=== PATIENT | male | born 1965 | race African-American/Black ===

== ENCOUNTER 2021-02-16 01:12 | Day surgery (SDC) | payer MEDICARE, SELFPAY ==
[2021-02-02 13:56] VITALS: BMI 27.4
--- NOTE | 2021-02-15 12:00 | P.PNAN_ITS ---
Anes - Initial Pre Proc Eval Procedure: Operation Date: 02/16/21 11:00 Proposed Procedures p Screening Colonoscopy - Rodney Chase MD Date/Time: 02/15/21 12:00 Surgeon: Rodney Chase MD Pre Op Diagnosis: family hx of colon ca Patient Data Age: 55 Gender: M Height: 1.73 m Weight: 81.8 kg Allergies Allergy/AdvReac Type Severity Reaction Status Date / Time No Known Allergies Allergy Verified 02/16/21 09:50 Home Medications Medication Instructions Recorded Confirmed Type No Home Medications 11/11/20 11/11/20 History Patient hx anesthesia problems: none Family hx anesthesia problems: none COUNT INCLUDES THE [facility] Past Medical History Medical History (Updated 02/15/21 @ 12:00 by Scotty Sanchez DO) Encounter for screening colonoscopy Schizophrenia Social History Social History (Updated 11/11/20 @ 09:41 by Danni Alejandro CMA) Smoking status: Former smoker Alcohol intake: current Drinks per week: 3 Substance use: never Substance use type: does not use Living arrangements: with family Gender identity (if verbalized by the patient): Male Anes - Eval Final PreProcedure Day of Procedure 02/15/21 12:00 Patient weight: overweight Heart: regular rate and rhythm Lungs: clear to auscultation and normal air movement Airway: Mallampati scale class II Neurological: alert and oriented Last oral intake: >/= 8 hours ASA classification: II Emergent: no Anesthetic plan: proceed Anesthesia type and monitoring: general GIVS and standard monitoring Informed Consent: The patient's anesthetic plan and its attendant risks and benefits were discussed with the patient/family/POA. Questions were solicited and answers provided to the satisfaction of the patient/family/POA.
[2021-02-16 09:52] VITALS: BP 131/81; PULSE 101; RESP 18; TEMP 36.4; O2SAT 100; BMI 24.3
[2021-02-16] MEDS: LACTATED RINGERS 1,000 ML 150 ML IV CONT (09:59)
--- NOTE | 2021-02-16 10:32 | PM.HPGS ---
History of Present Illness History of Present Illness Consent: Risks, benefits, and alternatives have been discussed and questions answered. Patient agrees to proceed with procedure. Chief complaint: family hx of colon ca Narrative: Verito Dye is a 55 year old male here for first screening colonoscopy, brother had colon cancer. Review of Systems Constitutional: Constitutional: Denies headache(s) and Denies weakness Eyes: Eyes: Denies blurry vision ENT: Reports Normal hearing present, Denies headache(s) and Denies neck pain Cardiovascular: Cardiovascular: Denies chest pain and Denies dyspnea Respiratory: Respiratory: Denies dyspnea Gastrointestinal: Gastrointestinal: Reports no additional gastrointestinal complaints Genitourinary: Genitourinary: Denies dysuria Musculoskeletal: Musculoskeletal: Denies neck pain Integumentary/Breasts: Skin/Breast: Denies dry skin Neurologic: Reports Normal hearing present, Denies headache(s) and Denies weakness Psychiatric: Psychiatric: Denies anxiety Endocrine: Endocrine: Denies change in body appearance Hematologic/Lymphatic: Hematologic/Lymphatic: Denies easy bleeding Allergic/Immunologic: Allergic/Immunologic: Denies urticaria PMFSH Past Medical History Medical History (Updated 02/15/21 @ 12:00 by Scotty Sanchez DO) Encounter for screening colonoscopy Schizophrenia Social History Social History (Updated 11/11/20 @ 09:41 by Danni Alejandro CMA) Smoking status: Former smoker Alcohol intake: current Drinks per week: 3 Substance use: never Substance use type: does not use Living arrangements: with family Gender identity (if verbalized by the patient): Male Meds Home Medications and Allergies Home Medications Medication Instructions Recorded Confirmed Type No Home Medications 11/11/20 11/11/20 History Allergies Allergy/AdvReac Type Severity Reaction Status Date / Time No Known Allergies Allergy Verified 02/16/21 09:50 Vital Signs Vital Signs - 24 hr 02/16/21 09:52 Temperature 97.5 F L Pulse Rate 101 H Respiratory Rate 18 Blood Pressure 131/81 Pulse Oximetry 100 Exam Const: General: comfortable and no acute distress HENMT: General nose exam: Normal nares present Eyes: General: appearance normal, both eyes and all related structures Neck: Neck: no JVD Resp: Auscultation: clear to auscultation bilaterally Cardio: Rate: regular rate Rhythm: regular rhythm GI: Inspection: non-distended GI Palp: Yes Soft to palpation Skin: General skin exam: normal color Neuro: General: gait normal Speech: normal speech Extrem: General: normal to inspection Psych: Mental Status: mental status grossly normal Assessment and Plan Assessment and plan (1) Encounter for screening colonoscopy: Code(s): Z12.11 - Encounter for screening for malignant neoplasm of colon Status: Acute Assessment and Plan: colonoscopy
[2021-02-16 10:53] VITALS: BP 88/57; PULSE 86; RESP 22; O2SAT 100
[2021-02-16 11:03] VITALS: BP 112/68; PULSE 92; RESP 20; O2SAT 100
[2021-02-16 11:13] VITALS: BP 113/72; PULSE 90; RESP 22; O2SAT 97
== END 2021-02-16 11:20 | disposition home or self-care (01) ==
PROVIDERS: PCP Family Medicine; Visit Provider Internal Medicine Gastroenterology
PROC: 0DJD8ZZ Inspection of Lower Intestinal Tract, Via Natural or Artificial Opening Endoscopic (ICD-10-PCS; CPT 45378; principal; 2021-02-16 11:00)
DX: Z12.11 Encounter for screening for malignant neoplasm of colon (principal); K64.8 Other hemorrhoids; Z80.0 Family history of malignant neoplasm of digestive organs; Z87.891 Personal history of nicotine dependence
CPT/HCPCS: G0105; J2704; J7120

== ENCOUNTER 2023-10-27 17:58 | Emergency (ER) | payer MEDICARE, SELFPAY ==
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
[2023-10-27 18:02] VITALS: BP 134/71; PULSE 82; RESP 16; TEMP 36.9; O2SAT 100
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
[2023-10-27] MEDS: TETANUS,DIPHTHERIA,AC PERTUSSIS ADULT (0.5 ML) BOOSTRIX IM (19:06)
[2023-10-27 19:35] LABS: Basophils Absolute Auto 0.1 K/mm3 (0.0-0.1); Basophils Percent Auto 0.5 % (0.2-1.2); Eosinophils Absolute Auto 0.1 K/mm3 (0-0.3); Eosinophils Percent Auto 0.6 % (0-4.4); Hematocrit 42.6 % (42.0-52.0); Hemoglobin 13.7 g/dL (14.0-18.0); Immature Granulocyte Absolute 0.03 K/mm3 (0.00-0.031); Immature Granulocyte Percent A 0.3 % (0-0.5); Lymphocytes Absolute Auto 1.93 K/mm3 (0.9-3.2); Lymphocytes Percent Auto 18.1 % (18.3-44.2); Mean Corpuscular HGB Conc 32.2 g/dl (32-36); Mean Corpuscular Hemoglobin 30.7 pg (26-34); Mean Corpuscular Volume 95.5 fl (80-100); Mean Platelet Volume 10.4 fl (7.4-10.4); Monocytes Absolute Auto 0.5 K/mm3 (0.1-0.6); Monocytes Percent Auto 4.8 % (2.6-8.5); Neutrophils Absolute Auto 8.1 K/mm3 (1.3-6.7); Neutrophils Percent Auto 75.7 % (45.5-73.1); Platelet Count Result 181 k/mm3 (150-375); Red Blood Count 4.46 M/mm3 (4.6-6.20); Red Cell Distribution Width 13.8 % (11.5-14.5); White Blood Count 10.7 K/mm3 (4.5-10.0)
[2023-10-27 19:40] LABS: Anion Gap 6 mmol/L (4-12); Blood Urea Nitrogen 17 mg/dL (9-20); Calcium 9.4 mg/dL (8.4-10.2); Carbon Dioxide 26 mmol/L (22-30); Chloride 108 mmol/L (98-107); Estimated CRCL calculation 64 ml/min; Estimated Glomerular Filt Rate > 60; Glucose 95 mg/dL (65-110); Sodium 140 mmol/L (137-145)
[2023-10-27 20:23] VITALS: PULSE 72; RESP 17; O2SAT 100
[2023-10-27 21:59] VITALS: BP 138/71; PULSE 74; RESP 19; O2SAT 98
== END 2023-10-27 22:00 | disposition home or self-care (01) ==
PROVIDERS: Emergency Provider Student in an Organized Health Care Education/Training Program
DX: S80.212A Abrasion, left knee, initial encounter (principal); V03.90XA Pedestrian on foot injured in collision with car, pick-up truck or van, unspecified whether traffic or nontraffic accident, initial encounter; Z23 Encounter for immunization; Z87.891 Personal history of nicotine dependence; R62.50 Unspecified lack of expected normal physiological development in childhood
CPT/HCPCS: 36415; 70450; 71260; 72125; 72129; 72132; 73552; 73562; 74177; 80048; 85025; 90471; 90715; 99284; Q9967

== ENCOUNTER 2024-05-07 15:41 | Outpatient (CLI) | payer MEDICARE, SELFPAY ==
[2024-05-07 16:13] LABS: Basophils Percent Auto 0.4 % (0.2-1.2); Eosinophils Percent Auto 0.4 % (0-4.4); Hematocrit 42.9 % (42.0-52.0); Hemoglobin 14.2 g/dL (14.0-18.0); Immature Granulocyte Absolute 0.02 K/mm3 (0.00-0.031); Immature Granulocyte Percent A 0.2 % (0-0.5); Lymphocytes Absolute Auto 2.79 K/mm3 (0.9-3.2); Lymphocytes Percent Auto 29.2 % (18.3-44.2); Mean Corpuscular HGB Conc 33.1 g/dl (32-36); Mean Corpuscular Hemoglobin 31.5 pg (26-34); Mean Corpuscular Volume 95.1 fl (80-100); Monocytes Absolute Auto 0.5 K/mm3 (0.1-0.6); Monocytes Percent Auto 5.1 % (2.6-8.5); Neutrophils Absolute Auto 6.2 K/mm3 (1.3-6.7); Neutrophils Percent Auto 64.7 % (45.5-73.1); Platelet Count Result 178 k/mm3 (150-375); Red Blood Count 4.51 M/mm3 (4.6-6.20); Red Cell Distribution Width 14.6 % (11.5-14.5); White Blood Count 9.6 K/mm3 (4.5-10.0)
[2024-05-07 16:27] LABS: Alanine Aminotransferase 18 U/L (6-50); Albumin Level 4.3 g/dL (3.5-5.1); Alkaline Phosphatase 99 U/L (38-126); Anion Gap 2 mmol/L (4-12); Aspartate Amino Transferase 27 U/L (17-59); Bilirubin,Total 0.6 mg/dL (0.2-1.3); Blood Urea Nitrogen 10 mg/dL (9-20); Calcium 8.9 mg/dL (8.4-10.2); Carbon Dioxide 30 mmol/L (22-30); Chloride 105 mmol/L (98-107); Cholesterol 145 mg/dL (0-200); Estimated Glomerular Filt Rate > 60; Glucose 95 mg/dL (65-110); HDL Direct 77 mg/dL; Potassium 4.2 mmol/L (3.4-5.0); Sodium 137 mmol/L (137-145); Triglycerides 38 mg/dL (<150)
[2024-05-07 16:30] LABS: Hemoglobin A1C 5.2 % (<5.7)
[2024-05-07 16:39] LABS: LDL Cholesterol Direct 53 mg/dL
[2024-05-07 16:58] LABS: Prostate Specific Antigen 0.6 ng/mL (< OR = 4.0); Total Triiodothyronine (T3) 1.26 NG/ML (0.97-1.69)
[2024-05-07 17:28] LABS: Free T4 Free Thyroxine 0.99 ng/mL (0.78-2.19)
== END 2024-05-07 15:42 | disposition home or self-care (01) ==
PROVIDERS: PCP Family Medicine; Visit Provider Family Medicine
DX: E78.5 Hyperlipidemia, unspecified (principal); R53.83 Other fatigue; Z12.5 Encounter for screening for malignant neoplasm of prostate; R73.01 Impaired fasting glucose
CPT/HCPCS: 36415; 80053; 80061; 83036; 84153; 84439; 84443; 84480; 85025; G0103

== ENCOUNTER 2024-07-24 23:20 | Emergency (ER) | payer MEDICARE, SELFPAY ==
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
[2024-07-24 23:22] VITALS: BP 126/65; PULSE 83; RESP 18; TEMP 36.6; O2SAT 100
--- NOTE | 2024-07-24 23:26 | ECG_ITS ---
Test Date: 2024-07-25 00:25:54 Measurements Intervals [place] Rate: 84 P: 58 CO: 140 QRS: 12 QRSD: 103 T: 33 QT: 345 QTc: 409 Interpretive Statements SINUS RHYTHM POSSIBLE RIGHT VENTRICULAR CONDUCTION DELAY [RSR (QR) IN V1/V2] ST ELEVATION CONSISTENT WITH INJURY, PERICARDITIS, OR EARLY REPOLARIZATION [ST ELEVATION W/O NORMALLY INFLECTED T WAVE] Compared to ECG 07/25/2024 00:01:28 No significant changes Electronically Signed On 07-25-2024 17:16:38 INDUSTRIAL MANAGEMENT TEACHER by Morgan Vidal M.D.
--- NOTE | 2024-07-25 00:18 | ECG_ITS ---
Test Date: 2024-07-25 00:01:28 Measurements Intervals [place] Rate: 80 P: 51 TN: 144 QRS: 1 QRSD: 87 T: 12 QT: 335 QTc: 387 Interpretive Statements SINUS RHYTHM ST ELEVATION, PROBABLY EARLY REPOLARIZATION [ST ELEVATION WITH NORMALLY INFLECTED T WAVE] VERSES BRUGADA PATTERN ABNORMAL ECG Electronically Signed On 07-25-2024 17:16:07 [employer]ICE PRESIDENT SALES by Morgan Vidal M.D.
[2024-07-25 01:04] LABS: Alanine Aminotransferase 18 U/L (6-50); Albumin Level 4.1 g/dL (3.5-5.1); Alkaline Phosphatase 125 U/L (38-126); Anion Gap 2 mmol/L (4-12); Aspartate Amino Transferase 21 U/L (17-59); Bilirubin,Total 0.2 mg/dL (0.2-1.3); Blood Urea Nitrogen 12 mg/dL (9-20); Calcium 9.3 mg/dL (8.4-10.2); Carbon Dioxide 30 mmol/L (22-30); Chloride 107 mmol/L (98-107); Estimated Glomerular Filt Rate > 60; Glucose 108 mg/dL (65-110); Lipase 448 U/L (23-300); Potassium 4.5 mmol/L (3.4-5.0); Sodium 139 mmol/L (137-145)
[2024-07-25 01:14] LABS: INR 0.9; Prothrombin Time 12.1 Seconds (11.1-14.7)
[2024-07-25 01:17] LABS: Partial Thromboplastin Time 23.4 Seconds (22.3-36.8)
[2024-07-25 01:20] LABS: Basophils Percent Auto 0.2 % (0.2-1.2); Eosinophils Percent Auto 0.1 % (0-4.4); Hematocrit 42.9 % (42.0-52.0); Hemoglobin 13.9 g/dL (14.0-18.0); Immature Granulocyte Absolute 0.04 K/mm3 (0.00-0.031); Immature Granulocyte Percent A 0.3 % (0-0.5); Lymphocytes Absolute Auto 0.69 K/mm3 (0.9-3.2); Lymphocytes Percent Auto 4.6 % (18.3-44.2); Mean Corpuscular HGB Conc 32.4 g/dl (32-36); Mean Corpuscular Hemoglobin 30.9 pg (26-34); Mean Corpuscular Volume 95.3 fl (80-100); Mean Platelet Volume 10.7 fl (7.4-10.4); Monocytes Absolute Auto 0.6 K/mm3 (0.1-0.6); Monocytes Percent Auto 4.1 % (2.6-8.5); Neutrophils Absolute Auto 13.5 K/mm3 (1.3-6.7); Neutrophils Percent Auto 90.7 % (45.5-73.1); Platelet Count Result 195 k/mm3 (150-375); Red Cell Distribution Width 14.3 % (11.5-14.5); Troponin I < 0.012 ng/mL (0.000-0.034); White Blood Count 14.8 K/mm3 (4.5-10.0)
[2024-07-25 03:37] VITALS: BP 114/58; PULSE 90; RESP 18; O2SAT 100
--- NOTE | 2024-07-25 04:36 | PC.NURSE ---
Pt niece came up to triage desk and states someone else is going to be bringing pt back to ED later in morning due to her having to work soon. All pt and family questions answered prior to leaving. Pt left without being seen by provider.
== END 2024-07-25 04:36 | disposition left against medical advice (07) ==
PROVIDERS: Emergency Provider Emergency Medicine; PCP Family Medicine
DX: R07.9 Chest pain, unspecified (principal)
CPT/HCPCS: 36415; 71046; 80053; 83690; 84484; 85025; 85610; 85730; 93005; 99199